=== PATIENT | female | born 1980 | race Two or more races ===

== ENCOUNTER 2021-02-27 08:00 | Day surgery (SDC) | payer OTHER | END 2021-02-27 13:05 | disposition home or self-care (01) | LOC: AMB-ENDOS 08:00 | PROVIDERS: ATTEND Colon & Rectal Surgery | DX: K63.5 Polyp of colon (principal); K64.8 Other hemorrhoids; Z12.11 Encounter for screening for malignant neoplasm of colon ==

== ENCOUNTER 2021-02-27 12:34 | Outpatient (CLI) | payer OTHER | END 2021-02-27 12:54 | disposition home or self-care (01) | LOC: TOM 12:34 | PROVIDERS: ATTEND Colon & Rectal Surgery | DX: K63.5 Polyp of colon (principal); N80.8 Other endometriosis; R10.11 Right upper quadrant pain; R19.7 Diarrhea, unspecified; Z12.11 Encounter for screening for malignant neoplasm of colon ==

== ENCOUNTER 2021-08-19 10:30 | Inpatient (IN) | payer OTHER ==
[~2021-08-19] VITALS: Ht 165.1 cm; Wt 111.1 kg
[2021-08-19] MEDS ORDERED: VASOFLEX PO (13:06)
[2021-08-19] MEDS ORDERED: ATACAND HCT 161 EACH PO (13:06)
[2021-08-22] MEDS ORDERED: MAGNESIUM OXID500 MG (16:48)
[2021-08-22] MEDS ORDERED: VASOFLEX TABLE1 EACH (16:48)
[2021-08-22] MEDS ORDERED: LOSARTAN-HCTZ1 EACH (16:48)
[2021-08-22] MEDS ORDERED: GENTLE LAXATIVE5 MG (16:48)
== END 2021-08-23 14:39 | disposition home or self-care (01) | DRG 743 ==
LOC: O/R 08-22 08:41 → SURH 08-22 10:30
PROVIDERS: ADMIT Obstetrics & Gynecology Gynecologic Oncology; ATTEND Obstetrics & Gynecology Gynecologic Oncology
PROC: 0UT54ZZ Resection of Right Fallopian Tube, Percutaneous Endoscopic Approach (ICD-10-PCS; 2021-08-22)
PROC: 0UTC4ZZ Resection of Cervix, Percutaneous Endoscopic Approach (ICD-10-PCS; 2021-08-22)
PROC: 0DNW4ZZ Release Peritoneum, Percutaneous Endoscopic Approach (ICD-10-PCS; 2021-08-22)
PROC: 0TN74ZZ Release Left Ureter, Percutaneous Endoscopic Approach (ICD-10-PCS; 2021-08-22)
PROC: 0TN64ZZ Release Right Ureter, Percutaneous Endoscopic Approach (ICD-10-PCS; 2021-08-22)
PROC: 0UT04ZZ Resection of Right Ovary, Percutaneous Endoscopic Approach (ICD-10-PCS; principal; 2021-08-22 23:15)
DX: N80.1 Endometriosis of ovary (principal); N99.4 Postprocedural pelvic peritoneal adhesions; N73.6 Female pelvic peritoneal adhesions (postinfective); N72 Inflammatory disease of cervix uteri; D28.2 Benign neoplasm of uterine tubes and ligaments; N80.3 Endometriosis of pelvic peritoneum; R19.03 Right lower quadrant abdominal swelling, mass and lump; R19.04 Left lower quadrant abdominal swelling, mass and lump; I10 Essential (primary) hypertension; E66.9 Obesity, unspecified; Z90.711 Acquired absence of uterus with remaining cervical stump; Z90.721 Acquired absence of ovaries, unilateral

== ENCOUNTER 2025-03-08 09:02 | Day surgery (SDC) | payer OTHER ==
[~2025-03-08 09:02] MED LIST: ATACAND HCT 161 EACH PO; GENTLE LAXATIVE5 MG; LOSARTAN-HCTZ1 EACH; MAGNESIUM OXID500 MG; VASOFLEX PO; VASOFLEX TABLE1 EACH
[2025-03-08] MEDS ORDERED: DIPHENHYDRAMINE HCL 50 MG/ML VIAL 1ML IV ONE ×2 (13:45)
[2025-03-08] MEDS ORDERED: fentaNYL CITRATE 50 MCG/ML AMPUL IV PUSH ONE (13:45)
[2025-03-08] MEDS ORDERED: ONDANSETRON HCL 2 MG/ML VIAL IV ONE (13:45)
[2025-03-08] MEDS ORDERED: MIDAZOLAM HCL 2 MG/2 ML VIAL IV ONE (13:45)
== END 2025-03-08 15:45 | disposition home or self-care (01) ==
LOC: AMB-ENDOS 09:02
PROVIDERS: ATTEND Colon & Rectal Surgery
DX: R19.4 Change in bowel habit (principal); K62.5 Hemorrhage of anus and rectum; Z12.11 Encounter for screening for malignant neoplasm of colon; Z88.5 Allergy status to narcotic agent; Z88.2 Allergy status to sulfonamides

== ENCOUNTER 2025-06-02 06:36 | Day surgery (SDC) | payer OTHER ==
[2025-05-23 12:44] LABS: URINE APPEARANCE Clear; URINE BILIRRUBIN Negative (NEGATIVE); URINE BLOOD Negative; URINE COLOR Yellow; URINE GLUCOSE Negative (NEGATIVE); URINE KETONE Negative (NEGATIVE); URINE LEUKOCYTE Negative; URINE NITRATE Negative; URINE PROTEIN Negative (NEGATIVE); URINE UROBILINOGEN 0.2 E.U./dl
[2025-05-23 12:48] LABS: BASO % 0.5 % (0.1-1.2); EOS # 0.08 (0.04-0.54); EOS % 1.3 % (0.7-7.0); LYMPH # 2.22 (1.18-3.74); LYMPH % 37.1 % (19.3-53.1); MEAN PLATELET VOLUME 10.00 fl (9.4-12.4); MONO # 0.37 (0.24-0.82); MONO % 6.2 % (4.7-12.5); NEUT # 3.23 (1.56-6.13); NEUT % 54.1 % (34.0-71.1); RED CELL DISTRIBUTION WIDTH 12.3 % (11.6-14.4); URINE BACTERIA 538.7 uL (0.0-1933); URINE CAST 0.00 uL (0.0-1.40); URINE EPITHELIAL CELLS 20.9 uL (0.0-38.8); URINE RBC 1.9 uL (0.0-20.8); URINE WBC 5.2 uL (0.0-23.2)
[2025-05-23 12:51] VITALS: BP 135/84
[2025-05-23 13:06] LABS: INR 0.98
[2025-05-23 13:38] LABS: ALT/SGPT 27.0 U/L (12-78); AST/SGOT 8.0 U/L (15-37); BILIRUBIN TOTAL 0.45 mg/dL (0.3-1.2); BUN CREA RATIO 24.0 (7.0-25.0); CREATININE SERUM 0.67 mg/dL (0.55-1.02); GFR 96.06; GLOBULINA 2.9 G/DL (2.4-3.5); GLUCOSE FASTING 86.0 mg/dL (65-100); OSMOLALITY SERUM 287.0 MOSM/KG (275-295); TSH 0.988 uIU/mL (0.358-3.74)
[2025-05-23 13:45] LABS: RH POSITIVE
[~2025-06-02] VITALS: Ht 165.1 cm; Wt 99.3 kg
[2025-06-02] MEDS ORDERED: METRONIDAZOLE/SODIUM CHLORIDE 500 MG/100 ML PIGGYBACK IV ONE (13:45)
[2025-06-02] MEDS ORDERED: CEFTRIAXONE SODIUM 2,000 MG VIAL IV ONE (13:45)
[2025-06-02] MEDS ORDERED: SUGAMMADEX SODIUM 200 MG/2 ML VIAL IV ONE (15:08)
[2025-06-02] MEDS ORDERED: MORPHINE SULFATE 4 MG/ML VIAL IV ONE ×2 (16:35→17:05)
[2025-06-02] MEDS ORDERED: ONDANSETRON HCL 2 MG/ML VIAL ONE (16:43)
== END 2025-06-02 18:35 | disposition home or self-care (01) ==
LOC: SURG 06:36 → CIR.AMB 06:36 → O/R 06:36 → CIR.AMB 18:35 → O/R 18:35
PROVIDERS: ATTEND Colon & Rectal Surgery
DX: K56.51 Intestinal adhesions [bands], with partial obstruction (principal); Z88.2 Allergy status to sulfonamides; N80.8 Other endometriosis; R10.33 Periumbilical pain